=== PATIENT | male | born 1985 | race Caucasian/White ===

== ENCOUNTER → 2017-10-14 | Outpatient (CLI) | payer OTHER ==
[~2017-10-14] MED LIST: AMPH1TAB83 PO; CLIN300C2 PO; DOCU100C PO; FEXO1TAB46 PO; LISD50CA4 PO; MISCCAP80 PO; MULT1CHW18 PO
== END | disposition home or self-care (01) ==
LOC: C.LAB 04:59
PROVIDERS: ATTEND Family Medicine
DX: Z13.1 Encounter for screening for diabetes mellitus (principal); Z13.6 Encounter for screening for cardiovascular disorders

== ENCOUNTER 2017-11-18 07:19 | Emergency (ER) | payer OTHER ==
[~2017-11-18] VITALS: Ht 174 cm; Wt 95.1 kg
[~2017-11-18 07:19] MED LIST changes: -LISD50CA4 PO
[2017-11-18 07:20] VITALS: TEMP 36.9; Ht 174 cm; Wt 95.1 kg
[2017-11-18] MEDS ORDERED: CEFTRIAXONE SOD 350MG/ML 1 GM VIAL IM STA (07:38)
[2017-11-18] MEDS ORDERED: AZITHROMYCIN 250 MG TAB PO STA (07:38)
[2017-11-18] MEDS ORDERED: CIPROFLOXACIN 500 MG TAB PO STA (07:38)
[2017-11-18] MEDS ORDERED: CIPR-255 PO (07:43)
--- NOTE | 2017-11-18 07:44 | EMERGENCY ROOM VISIT NOTE ---
History Report prepared by Arielle: Charisma Goode Under the Supervision of: Dr. Aubrey Ya M.D. First contact with patient: 07:28 Chief Complaint: URINARY SYMPTOMS Stated Complaint: URINARY SYMPTOMS History of Present Illness The patient is a 32 year old male who presents to the Emergency Room with complaints of worsening urinary symptoms for the past 2-3 days. He reports dysuria for the past few days that is worse when he begins urinating. His symptoms are somewhat improved with drinking a lot of fluids. He rates his pain as a 5/10 in severity. The patient did a UTI home kit which was negative for infection. Last night he had his urine tested and states that it was positive for leukocytes, protein, and blood. The patient denies any abrasions on his penis and any penile discharge. He does report a new sexual partner and had unprotected anal sex 6 days ago. He does have some concern for STDs. The patient reports that about 12 hours ago he developed swelling of his gums. He reports spots on them and states that it is painful to eat. He denies any other rash at this time. Source of History: patient Onset: 2-3 days ago Position: abdomen Symptom Intensity: 5/10 Quality: other (dysuria) Timing: worsening Modifying Factors (Worsening): urination Modifying Factors (Relieving): drinking Associated Symptoms: + rash (spots on gums) Review of Systems See HPI for pertinent positives & negatives. A total of 10 systems reviewed and were otherwise negative. Past Medical & Surgical Medical Problems: (1) ADD (2) Anxiety (3) Asthma (4) Bronchitis (5) Pneumonia Family History No significant family history Social History Smoking Status: Never Smoker Alcohol Use: occasionally Occupation Status: employed Current/Historical Medications Scheduled Amphetamine-Dextroamphetamine 10MG (Adderall 10MG), 15 MG PO DAILY Ciprofloxacin Hcl (Cipro), 1 TAB PO BID Lisdexamfetamine Dimesylate (Vyvanse), 50 MG PO DAILY Scheduled PRN Clonazepam (Clonazepam Odt), 0.25 MG PO DAILY PRN for Anxiety Tizanidine (Zanaflex), 2 MG PO TID PRN for Muscle Spasms Zolpidem Tartrate (Ambien), 10 MG PO HS PRN for Sleep Allergies Coded Allergies: Penicillins (Unverified Allergy, Intermediate, ABD PAIN, 11/18/17) Physical Exam Vital Signs Date Time Temp Pulse Resp B/P (MAP) Pulse Ox O2 Delivery O2 Flow Rate FiO2 11/18/17 08:05 95 17 123/78 99 11/18/17 07:20 36.9 95 17 151/84 99 Room Air Physical Exam GENERAL: Awake, alert, well-appearing, in no acute distress HENT: Normocephalic, atraumatic. Oropharynx unremarkable. EYES: Normal conjunctiva. Sclera non-icteric. NECK: Supple. No nuchal rigidity. FROM. No JVD. RESPIRATORY: Clear to auscultation. CARDIAC: Regular rate, normal rhythm. Extremities warm and well perfused. Pulses equal. ABDOMEN: Soft, non-distended. No tenderness to palpation. No rebound or guarding. No masses. : No testicular pain, no discharge. RECTAL: Deferred. MUSCULOSKELETAL: Chest examination reveals no tenderness. The back is symmetrical on inspection without obvious abnormality. There is no CVA tenderness to palpation. No joint edema. LOWER EXTREMITIES: Calves are equal size bilaterally and non-tender. No edema. No discoloration. NEURO: Normal sensorium. No sensory or motor deficits noted. SKIN: No rash or jaundice noted. Medical Decision & Procedures Laboratory Results Test 11/18/17 07:34 11/18/17 07:37 Urine Color YELLOW Urine Appearance CLEAR (CLEAR) Urine pH 6.0 (4.5-7.5) Urine Specific [place] 1.019 (1.000-1.030) Urine Protein NEG (NEG) Urine Glucose (UA) NEG (NEG) Urine Ketones NEG (NEG) Urine Occult Blood NEG (NEG) Urine Nitrite NEG (NEG) Urine Bilirubin NEG (NEG) Urine Urobilinogen NEG (NEG) Urine Leukocyte Esterase SMALL (NEG) Urine WBC (Auto) 5-10 /hpf (0-5) Urine RBC (Auto) 0-4 /hpf (0-4) Urine Hyaline Casts (Auto) 0 /lpf (0-5) Urine Epithelial Cells (Auto) 5-10 /lpf (0-5) Urine Bacteria (Auto) NEG (NEG) Labs reviewed by ED physician. Medications Administered Medications (Trade) Dose Ordered Sig/Sonny Route Start Time Stop Time Status Last Admin Dose Admin Ceftriaxone Sodium (Rocephin Im) 250 mg NOW STAT IM 11/18/17 07:38 11/18/17 07:42 DC 4/12/18 07:53 250 MG Azithromycin (Zithromax Tab) 1,000 mg NOW STAT PO 11/18/17 07:38 11/18/17 07:42 DC 11/18/17 07:53 1,000 MG Ciprofloxacin (Cipro Tab) 500 mg NOW STAT PO 11/18/17 07:38 11/18/17 07:42 DC 11/18/17 07:53 500 MG ED Course 0728: Past medical records reviewed. The patient was evaluated in room A11B. A complete history and physical examination was performed. At this time I discussed the results and treatment plan with the patient. I answered all pertaining questions that he had. He expressed understanding and verbalized agreement. The patient will be discharged home. 0738: Cipro 500 mg PO, Azithromycin 1000 mg PO, Rocephin 250 mg IM Medical Decision Differential diagnoses includes UTI, chlamydia, gonorrhea. This is a 32-year-old male who presents emergency department complaining of pain when he urinates. Based on the patient's symptoms was prophylactically started on Rocephin IM as well as azithromycin. I will place the patient on Cipro as he admits to anal sex pending urine culture results. Medication Reconcilliation Current Medication List: was personally reviewed by me Blood Pressure Screening Patient's blood pressure: Elevated blood pressure Blood pressure disposition: Referred to PCP Impression Primary Impression: Symptoms of urinary tract infection Scribe Attestation The scribe's documentation has been prepared under my direction and personally reviewed by me in its entirety. I confirm that the note above accurately reflects all work, treatment, procedures, and medical decision making performed by me. Departure Information Dispostion Home / Self-Care Prescriptions Ciprofloxacin Hcl (CIPRO) 500 Mg Tab 1 TAB PO BID for 10 Days, #20 TAB Prov: Aubrey Ya MD 11/18/17 Referrals Stevan Henderson III, M.D. (PCP) Forms HOME CARE DOCUMENTATION FORM, IMPORTANT VISIT INFORMATION Patient Instructions ED UTI Cystitis Male, [facility] Additional Instructions Culture results are usually available in approx 48 hours You have been examined and treated today on an emergency basis only. This is not a substitute for, or an effort to provide, complete comprehensive medical care. It is impossible to recognize and treat all injuries or illnesses in a single emergency department visit. It is therefore important that you follow up closely with Dr Henderson. Call as soon as possible for an appointment. Thank you for your time and consideration. I look forward to speaking with you again soon. Please don't hesitate to call us if you have any questions.
[2017-11-18] MEDS ORDERED: AMPH10TA2 PO (08:03)
[2017-11-18] MEDS ORDERED: TIZA2CAP PO (08:03)
[2017-11-18] MEDS ORDERED: CLON0.252 PO (08:03)
[2017-11-18] MEDS ORDERED: ZOLP10TA PO (08:03)
[2017-11-18 08:05] VITALS: BP 123/78; PULSE 95; O2SAT 99
[2017-11-18] MEDS ORDERED: LISD50CA4 PO (23:52)
== END 2017-11-18 08:06 | disposition home or self-care (01) ==
LOC: C.EDB 07:20 → C.EDA 08:06
DX: R30.0 Dysuria (principal); F90.9 Attention-deficit hyperactivity disorder, unspecified type; F41.9 Anxiety disorder, unspecified; Z79.899 Other long term (current) drug therapy; Z88.0 Allergy status to penicillin

== ENCOUNTER → 2017-12-29 | Outpatient (CLI) | payer OTHER ==
[~2017-12-29] MED LIST changes: +AMPH10TA2 PO; -AMPH1TAB83 PO; +CIPR-255 PO; -CLIN300C2 PO; +CLON0.252 PO; -DOCU100C PO; -FEXO1TAB46 PO; +LISD50CA4 PO; -MISCCAP80 PO; -MULT1CHW18 PO; +TIZA2CAP PO; +ZOLP10TA PO
--- NOTE | 2017-12-29 10:01 | ECHOCARDIOGRAM REPORT ---
*NOTICE TO RECEIVING LIBERTARIAN AGENCY This information is strictly Confidential and protected under [place] law. [place] law prohibits you from making any further disclosure of this information unless further disclosure is expressly permitted by the written consent of the person to whom it pertains or is authorized by law. A general authorization for the release of medical or other information is not sufficient for this purpose. Hospital accepts no responsibility if the information is made available to any other person, INCLUDING THE PATIENT. Interpretation Summary * Name: RILEY DAILY I Study Date: 12/29/2017 07:40 AM BP: 123/78 mmHg * Patient Location: [facility] HR: 67 * : 1985 (M/d/yyyy) Gender: Male Height: 68 in * Age: 32 yrs Ethnicity: CA Weight: 190 lb * Ordering Physician: Albert Wnag * Referring Physician: Albert Wang * Performed By: Dinorah Tomlinson RCS * * Reason For Study: DIZZINESS / LIGHTHEADEDNESS / VEGAL REACTION * BSA: 2.0 m2 * The study was technically adequate. * There is no comparison study available. * -- Conclusions -- * Left ventricular systolic function is normal. * Ejection Fraction = 55-60%. * The left ventricular wall motion is normal. * Pulse wave TDI of the anterior and posterior mitral annulas demonstrates normal LV relaxation. * No significant valvular pathology. Procedure Details * A complete two-dimensional transthoracic echocardiogram was performed (2D, M-mode, Doppler and color flow Doppler). Left Ventricle * The left ventricle is normal in size. * There is no thrombus. * There is normal left ventricular wall thickness. * Left ventricular systolic function is normal. * Ejection Fraction = 55-60%. * The left ventricular wall motion is normal. Right Ventricle * The right ventricle is normal size. * The right ventricular systolic function is normal as assessed by tricuspid annular plane systolic excursion (TAPSE) (normal >1.5 cm). Atria * The left atrial size is normal. * Right atrial size is normal. * There is no evidence of atrial septal defect, but resolution does not allow assessment for a patent foramen ovale. Mitral Valve * The mitral valve is normal. * There is no mitral valve stenosis. * Significant mitral regurgitation is absent. Tricuspid Valve * The tricuspid valve is normal. * There is no tricuspid stenosis. * There is trace tricuspid regurgitation. Aortic Valve * The aortic valve is trileaflet. * Aortic stenosis is absent. * There is no significant aortic regurgitation. Pulmonic Valve * The pulmonary valve is inadequately visualized, but the Doppler data is adequate for interpretation. * There is no pulmonic valvular stenosis. * Trace pulmonic valvular regurgitation. Great Vessels * The aortic root and proximal ascending aorta are normal sized. Pericardium/Pleural * There is no pericardial effusion. Great Vessels * Normal inferior vena cava diameter and respiratory variation suggests normal central venous pressure. Left Ventricular Diastolic Function * Pulse wave TDI of the anterior and posterior mitral annulas demonstrates normal LV relaxation MMode 2D Measurements and Calculations IVSd 1.0 cm IVSs 1.3 cm LVIDd 3.9 cm LVIDs 2.7 cm LVPWd 0.75 cm LVPWs 1.2 cm IVS/LVPW 1.3 FS 32.2 % EDV(Teich) 67.7 ml ESV(Teich) 26.4 ml EF(Teich) 61.0 % EDV(cubed) 61.3 ml ESV(cubed) 19.1 ml EF(cubed) 68.8 % % IVS thick 29.0 % % LVPW thick 66.3 % LV mass(C)d 103.4 grams LV mass(C)dI 51.7 grams/m\S\2 LV mass(C)s 102.7 grams LV mass(C)sI 51.4 grams/m\S\2 SV(Teich) 41.3 ml SI(Teich) 20.7 ml/m\S\2 SV(cubed) 42.2 ml SI(cubed) 21.1 ml/m\S\2 Ao root diam 2.7 cm Ao root area 5.7 cm\S\2 LA dimension 3.5 cm LA/Ao 1.3 LVOT diam 2.0 cm LVOT area 3.2 cm\S\2 LVAd ap4 39.7 cm\S\2 LVLd ap4 8.8 cm EDV(MOD-sp4) 144.4 ml EDV(sp4-el) 151.3 ml LVAs ap4 22.2 cm\S\2 LVLs ap4 7.1 cm ESV(MOD-sp4) 58.7 ml ESV(sp4-el) 58.7 ml EF(MOD-sp4) 59.3 % EF(sp4-el) 61.2 % LVAd ap2 35.9 cm\S\2 LVLd ap2 8.4 cm EDV(MOD-sp2) 124.9 ml EDV(sp2-el) 130.7 ml LVAs ap2 22.0 cm\S\2 LVLs ap2 7.0 cm ESV(MOD-sp2) 58.1 ml ESV(sp2-el) 58.6 ml EF(MOD-sp2) 53.5 % EF(sp2-el) 55.2 % LVLd %diff -5.51 % EDV(MOD-bp) 138.7 ml LVLs %diff -10 % ESV(MOD-bp) 58.5 ml EF(MOD-bp) 57.8 % SV(MOD-sp4) 85.7 ml SI(MOD-sp4) 42.8 ml/m\S\2 SV(MOD-sp2) 66.8 ml SI(MOD-sp2) 33.4 ml/m\S\2 SV(MOD-bp) 80.2 ml SI(MOD-bp) 40.1 ml/m\S\2 SV(sp4-el) 92.6 ml SI(sp4-el) 46.3 ml/m\S\2 SV(sp2-el) 72.1 ml SI(sp2-el) 36.0 ml/m\S\2 Doppler Measurements and Calculations MV E max dmitriy 94.9 cm/sec MV A max dmitriy 35.1 cm/sec MV E/A 2.7 MV P1/2t max dmitriy 90.6 cm/sec MV P1/2t 80.2 msec MVA(P1/2t) 2.7 cm\S\2 MV dec slope 330.9 cm/sec\S\2 MV dec time 0.15 sec Ao V2 max 139.3 cm/sec Ao max PG 7.8 mmHg Ao max PG (full) 1.1 mmHg [place](V,A) 3.0 cm\S\2 [place](V,D) 3.0 cm\S\2 LV V1 max PG 6.7 mmHg LV V1 max 129.5 cm/sec PA V2 max 96.6 cm/sec PA max PG 3.7 mmHg PI max dmitriy 134.6 cm/sec PI max PG 7.2 mmHg PI dec slope 129.6 cm/sec\S\2 PI P1/2t 304.1 msec TR max dmitriy 215.5 cm/sec
== END | disposition home or self-care (01) ==
LOC: C.CPL 07:29
PROVIDERS: ATTEND Internal Medicine Cardiovascular Disease
DX: R42 Dizziness and giddiness (principal); R55 Syncope and collapse; R00.0 Tachycardia, unspecified